=== PATIENT | female | born 1980 | race Caucasian/White ===

== ENCOUNTER → 2016-10-22 | Outpatient (CLI) | payer BC ==
[~2016-10-22] MED LIST: BARIUM SUSPENSION 2.1% (VANILLA SILQ) 450 ML PO ONE; BCP PO; CATHETER FLUSH 10 ML SYR IV PRN; CLIN300C3 PO; HYDR-3729 PO; IOHEXOL 350 MG/ML 100 ML (OMNIPAQUE 350) VIAL IV ONE; NORG1TAB33 PO; NS 100 ML (IVPB) BAG IV ONE; PRD20T PO
--- NOTE | 2016-10-22 10:03 | Diagnostic Imaging Report ---
CLINICAL INDICATION: Patient with bilateral flank pain, upset stomach, pain in lower right side. Patient had left ovarian cyst removed in 2010. EXAM: Axial CT scan of the abdomen and pelvis performed with 100 cc of Omnipaque 350 IV contrast. Portal venous and delayed phases were obtained. Coronal reformatted images were created. COMPARISON: None. FINDINGS: The visualized lung bases are clear. There is diffuse bowel wall thickening and decompression of the colon noted from the rectosigmoid region all the way to the cecum. There is residual enteric contrast within the colon. There is no significant adjacent fat stranding or intra-abdominal fluid collection seen. There is no intra-abdominal free air. The terminal ileum is predominantly decompressed and grossly unremarkable as visualized. The appendix is partially visualized and is grossly unremarkable as seen. The remainder of the intestines are unremarkable. There is no intra-abdominal or intrapelvic lymphadenopathy. The liver, spleen, gallbladder, and adrenal glands are unremarkable. Right kidney is unremarkable with no evidence of stones or hydronephrosis. There are congenital abnormal findings of the left kidney which is located in the low abdominal upper pelvis region and is slightly deformed and rotated in a clockwise manner. There is no hydronephrosis, stones or left renal mass seen. The uterus is unremarkable. The bladder is partially fluid distended and shows no gross abnormality. Extra-abdominal and extrapelvic soft tissue structures are unremarkable. IMPRESSION: 1: There is diffuse bowel wall thickening and decompressed appearance noted throughout the colon. There is no adjacent fat stranding seen. There is residual enteric contrast seen within the colon. Terminal ileum shows no significant abnormality as visualized. These findings may be related to infectious colitis versus ulcerative colitis versus Crohn's disease. 2: Congenitally abnormal appearance and rotated left kidney located in the pelvis. There is no evidence of hydronephrosis or urinary tract stones. 3: The remainder of this exam shows no significant abnormality. Dictated by: Dictated on workstation # [id number]
== END ==
LOC: RAD 08:30
PROVIDERS: ATTEND Surgery
DX: R10.11 Right upper quadrant pain (principal)
CPT/HCPCS: 74177

== ENCOUNTER → 2016-10-28 | Outpatient (CLI) | payer BC ==
[~2016-10-28] MED LIST changes: -BARIUM SUSPENSION 2.1% (VANILLA SILQ) 450 ML PO ONE; -IOHEXOL 350 MG/ML 100 ML (OMNIPAQUE 350) VIAL IV ONE; -NS 100 ML (IVPB) BAG IV ONE
--- NOTE | 2016-10-28 13:14 | Diagnostic Imaging Report ---
INDICATION: Right upper quadrant pain. COMPARISON: CT 10/22/2016. TECHNIQUE: Scintigraphic images were obtained following the intravenous administration of 5.41 mCi of technetium 99m labeled Choletec. Ejection fraction was calculated following the administration of a fatty meal. Region of interest was drawn around the gallbladder and a time/activity curve was generated. DISCUSSION: Hepatic uptake and excretion are normal. There is normal appearance of activity within the gallbladder at 15 minutes and within the small bowel at 20 minutes. No retention activity seen within the common duct. Following the administration of a fatty meal, the gallbladder ejection fraction was calculated at 61%, normal. IMPRESSION: 1. Normal HIDA scan. 2. Normal gallbladder ejection fraction. 3. Patient reported no symptoms during the exam. Dictated by: Dictated on workstation # [id number]
== END ==
LOC: CARD 09:52
PROVIDERS: ATTEND Surgery
DX: R10.11 Right upper quadrant pain (principal)
CPT/HCPCS: 78227

== ENCOUNTER 2017-01-23 09:05 | Emergency (ER) | payer BC ==
[~2017-01-23] VITALS: Ht 165.1 cm; Wt 52.2 kg
[~2017-01-23 09:05] MED LIST changes: -CATHETER FLUSH 10 ML SYR IV PRN
--- OUTSIDE RECORDS SUMMARY | 2017-01-23 09:14 | XMS REPORT | Continuity of Care Document ---
Author Author [employer] Organization [facility] Address Unknown Phone Unavailable Care Team Providers Care Vp Training Name Role Phone [employer] Unavailable Unavailable Problems Medications Allergies, Adverse Reactions, Alerts Immunizations Results Vital Signs Encounters Procedures Plan of Care Social History Assessment and Plan Family History Value Date Source Advance Directives Order Name Results Value Date Source
--- OUTSIDE RECORDS SUMMARY | 2017-01-23 09:15 | XMS REPORT | Continuity of Care Document ---
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 09/27/2015 CARLIN PRICE MD Ot J34.3 HYPERTROPHY OF NASAL TURBINATES 09/27/2015 CARLIN PRICE MD Ot Z01.810 ENCOUNTER FOR PREPROCEDURAL CARDIOVASCUL 09/27/2015 CARLIN PRICE MD Ot Z01.812 ENCOUNTER FOR PREPROCEDURAL LABORATORY E 09/27/2015 CARLIN PRICE MD Ot Z11.2 ENCOUNTER FOR SCREENING FOR OTHER BACTER 09/28/2015 CARLIN PRICE MD Ot J32.4 09/28/2015 CARLIN PRICE MD Ot J34.2 09/28/2015 CARLIN PRICE MD Ot J34.3 09/28/2015 CARLIN PRICE MD Ot Z01.810 09/28/2015 CARLIN PRICE MD Ot Z01.812 09/28/2015 CARLIN PRICE MD Ot Z11.2 10/06/2015 CARLIN PRICE MD Ot J32.0 CHRONIC MAXILLARY SINUSITIS 10/06/2015 CARLIN PRICE MD Ot J32.2 CHRONIC ETHMOIDAL SINUSITIS 10/06/2015 CARLIN PRICE MD Ot J34.3 HYPERTROPHY OF NASAL TURBINATES 06/17/2016 CARLIN PRICE MD Ot J32.9 CHRONIC SINUSITIS, UNSPECIFIED 06/17/2016 CARLIN PRICE MD Ot R51 HEADACHE 07/03/2016 CALRIN PRICE MD Ot J32.9 CHRONIC SINUSITIS, UNSPECIFIED 07/16/2016 CARLIN PRICE MD Ot J32.0 CHRONIC MAXILLARY SINUSITIS 07/16/2016 DEE RIVAS, CARLIN Underwood Ot Z01.818 ENCOUNTER FOR OTHER PREPROCEDURAL EXAMIN 07/17/2016 CARLIN PRICE MD Ot J32.0 CHRONIC MAXILLARY SINUSITIS 07/19/2016 CARLIN PRICE MD Ot J32.0 CHRONIC MAXILLARY SINUSITIS 07/23/2016 CARLIN PRICE MD Ot J32.0 CHRONIC MAXILLARY SINUSITIS 07/24/2016 CARLIN PRICE MD Ot J32.0 CHRONIC MAXILLARY SINUSITIS 07/26/2016 CARLIN PRICE MD Ot J32.0 CHRONIC MAXILLARY SINUSITIS 10/23/2016 IZAIAHBAKARI FOREMAN DOTIE Ot R10.11 RIGHT UPPER QUADRANT PAIN 10/23/2016 IZAIAHGRICELDA FOREMAN DOROUTIE Ot R10.11 RIGHT UPPER QUADRANT PAIN 10/29/2016 IZAIAH DO, GRICELDAROUTIE Ot R10.11 RIGHT UPPER QUADRANT PAIN 11/04/2016 BAKARI BLISS DOTIE Ot R10.11 RIGHT UPPER QUADRANT PAIN 11/15/2016 IZAIAH DO, GRICELDAROUTIE Ot R10.11 RIGHT UPPER QUADRANT PAIN Procedures Results Test Result Range Urine beta human chorionic gonadotropin (hCG) measurement - 07/17/16 12:15 Urine beta human chorionic gonadotropin (hCG) measurement NEGATIVE NEGATIVE Complete blood count (CBC) with automated white blood cell (WBC) differential - 07/17/16 12:40 Blood leukocytes automated count (number/volume) 6.7 10*3/ uL 4.3-11.0 Blood erythrocytes automated count (number/volume) 4.25 10*6 /uL 4.35-5.85 Venous blood hemoglobin measurement (mass/volume) 12.5 g/dL 11.5-16.0 Blood hematocrit (volume fraction) 38 % 35-52 Automated erythrocyte mean corpuscular volume 89 [foz_us] 80-99 Automated erythrocyte mean corpuscular hemoglobin (mass per erythrocyte) 29 pg 25-34 Automated erythrocyte mean corpuscular hemoglobin concentration measurement ( mass/volume) 33 g/dL 32-36 Automated erythrocyte distribution width ratio 12.5 % 10.0-14.5 Automated blood platelet count (count/volume) 362 10*3/uL 130-400 Automated blood platelet mean volume measurement 9.4 [foz_us ] 7.4-10.4 Automated blood neutrophils/100 leukocytes 50 % 42-75 Automated blood lymphocytes/100 leukocytes 38 % 12-44 Blood monocytes/100 leukocytes 11 % 0-12 Automated blood eosinophils/100 leukocytes 1 % 0-10 Automated blood basophils/100 leukocytes 0 % 0-10 Blood neutrophils automated count (number/volume) 3.3 10*3 1.8-7.8 Blood lymphocytes automated count (number/volume) 2.6 10*3 1.0-4.0 Blood monocytes automated count (number/volume) 0.7 10*3 0.0-1.0 Automated eosinophil count 0.1 10*3/uL 0.0-0.3 Automated blood basophil count (count/volume) 0.0 10*3/uL 0.0-0.1 Whole blood basic metabolic panel - 07/17/16 12:40 Serum or plasma sodium measurement (moles/volume) 137 mmol/ L 135-145 Serum or plasma potassium measurement (moles/volume) 3.7 mmol/L 3.6-5.0 Serum or plasma chloride measurement (moles/volume) 105 mmol /L 98-107 Carbon dioxide 21 mmol/L 21-32 Serum or plasma anion gap determination (moles/volume) 11 mmol/L 5-14 Serum or plasma urea nitrogen measurement (mass/volume) 8 mg /dL 7-18 Serum or plasma creatinine measurement (mass/volume) 0.70 mg /dL 0.60-1.30 Serum or plasma urea nitrogen/creatinine mass ratio 11 NRG Serum or plasma creatinine measurement with calculation of estimated glomerular filtration rate > NRG Serum or plasma glucose measurement (mass/volume) 75 mg/dL 70-105 Serum or plasma calcium measurement (mass/volume) 8.7 mg/dL 8.5-10.1 Methicillin resistant Staphylococcus aureus (MRSA) screening culture - 12:40 Methicillin resistant Staphylococcus aureus (MRSA) screening culture NEG NRG Bacteria identification in isolate by anaerobe culture - 07/17/16 14:51 Bacteria identification in isolate by anaerobe culture NOANA NRG Gram stain microscopy - 07/17/16 14:51 GRAM STAIN RESULT FEW WBC'S, NO BACTERIA OBSERVED NRG Bacteria identification in wound by culture - 07/17/16 14:51 Bacteria identification in wound by culture [id number] [facility] FREE TEXT EXTERNAL SENSITIVITY REPORTED AT 0805, 1-2-17 NRG QUANTITY OF GROWTH Scant Growth NRG MRSA AGAR Screening test for MRSA is NEGATIVE (Final to follow) NRG Bacterial susceptibility panel - 07/17/16 14:51 Oxacillin susceptibility test by minimum inhibitory concentration <= NRG Gentamicin susceptibility test by minimum inhibitory concentration <= NRG Clindamycin susceptibility test by minimum inhibitory concentration R NRG Erythromycin susceptibility test by minimum inhibitory concentration >= NRG Trimethoprim/sulfamethoxazole susceptibility test by minimum inhibitoryconcentration <= NRG Vancomycin susceptibility test by minimum inhibitory concentration <= NRG Levofloxacin susceptibility test by minimum inhibitory concentration <= NRG Rifampin susceptibility test by minimum inhibitory concentration <= NRG Tetracycline susceptibility test by minimum inhibitory concentration <= NRG Fungus culture - 07/17/16 14:51 Fungus culture NG NRG Encounters ACCT No. Visit Date/Time Discharge Status Pt. Type Provider Facility Loc./Unit Complaint [id number] 07/17/2016 12:14:00 2015 17:40:00 DIS Outpatient CARLIN PRICE MD [facility] RIGHT MAXILARY SINUSITIS [id number] 07/10/2016 05:37:00 2015 12:11:00 DIS Outpatient CARLIN PRICE MD [facility] PREOP RIGHT MAXILARY SINUSITIS [id number] 10/06/2015 08:10:00 2015 14:35:00 DIS Outpatient CARLIN PRICE MD [facility] DEVIATED SEPTUM,HYPERTROPHY NASAL TURBINATES [id number] 09/27/2015 05:50:00 2015 13:43:00 DIS Outpatient CARLIN PRICE MD [facility] PREOP DEVIATED SEPTUM [id number] 10/28/2016 09:52:00 ACT Outpatient CHELSIE BLISS DO [facility] CARD RUQ PAIN [id number] 10/22/2016 08:30:00 ACT Outpatient CHELSIE BLISS DO [facility] RAD RUQ PAIN [id number] 06/17/2016 11:41:00 ACT Outpatient CARLIN PRICE MD [facility] RAD CHRONIC SINUSITIS [id number] 08/01/2015 08:41:00 ACT Outpatient CARLIN PRICE MD [facility] RAD HEADACHES,CHRONIC PANSINUSITIS
[2017-01-23] MEDS ORDERED: NS IV 1000 ML 1,000 ML IV ONE (09:27)
[2017-01-23] MEDS ORDERED: ONDANSETRON 4 MG/2 ML (SDV) Z0FRAN IVP ONE (09:30)
[2017-01-23] MEDS ORDERED: LIDOCAINE 2% VISCOUS 15 ML UDC PO ONE (09:45)
[2017-01-23] MEDS ORDERED: ANTACID SUSP 30 ML UDC (MYLANTA) PO ONE (09:45)
[2017-01-23 09:54] LABS: BASOPHILS % (AUTO) 0 % (0-10); EOSINOPHILS % (AUTO) 0 % (0-10); LYMPHOCYTES # (AUTO) 1.5 X 10^3 (1.0-4.0); LYMPHOCYTES % (AUTO) 23 % (12-44); MEAN CORPUSCULAR HEMOGLOBIN 30 PG (25-34); MEAN CORPUSCULAR HGB CONC 34 G/DL (32-36); MEAN CORPUSCULAR VOLUME 89 FL (80-99); MONOCYTES # (AUTO) 0.5 X 10^3 (0.0-1.0); MONOCYTES % (AUTO) 7 % (0-12); NEUTROPHILS # (AUTO) 4.6 X 10^3 (1.8-7.8); NEUTROPHILS % (AUTO) 69 % (42-75); PLATELET COUNT 362 10^3/uL (130-400); RED BLOOD COUNT 4.59 10^6/uL (4.35-5.85); RED CELL DISTRIBUTION WIDTH 12.8 % (10.0-14.5); WHITE BLOOD COUNT 6.7 10^3/uL (4.3-11.0)
[2017-01-23 09:58] LABS: BILIRUBIN,URINE NEGATIVE (NEGATIVE); KETONES,URINE 2+ (NEGATIVE); LEUKOCYTE ESTERASE ,URINE 1+ (NEGATIVE); NITRITE,URINE NEGATIVE (NEGATIVE); PH,URINE 5 (5-9); PROTEIN,URINE 2+ (NEGATIVE); SQUAMOUS EPITHELIAL CELL,UR >50 /HPF; UROBILINOGEN,URINE NORMAL (NORMAL); WBC,URINE 0-2 /HPF
[2017-01-23] MEDS ORDERED: FAMOTIDINE 20MG/2ML IV (PEPCID) IVP ONE (10:00)
[2017-01-23 10:11] LABS: ALBUMIN 4.3 GM/DL (3.2-4.5); BILIRUBIN,TOTAL 0.5 MG/DL (0.1-1.0); CALCIUM 9.8 MG/DL (8.5-10.1); CREATININE SERUM 1.11 MG/DL (0.60-1.30); MAGNESIUM 2.2 MG/DL (1.8-2.4); TOTAL PROTEIN 7.8 GM/DL (6.4-8.2); hs C REACTIVE PROTEIN 0.61 MG/DL (0.00-0.50)
[2017-01-23 10:20] LABS: ERYTHROCYTE SEDIMENTATION RATE 10 MM/HR (0-20)
--- NOTE | 2017-01-23 10:31 | ED Abdominal Pain ---
General Chief Complaint: -Female Stated Complaint: FATIGUE/LACK OF APPETITE/VAG BLEEDING/NAUSEA Nursing Triage Note: ADM TO ED REPORTS 2 MONTHS AGO WAS SEEN BY DR MULLINS IN [place] TEST DONE WAS TOLD SHE HAD INFECTION IN COLON WAS PUT ON ANTIBIOTICS HAS NOT FELT WELL SINCE. 2 WEEKS AGO SAW [facility] WAS TOLD SHE HAD ANTIBIOTIC. REPORTS NOT ABALE TO EAT NAUSEA IS ON BCP STARTED WITH VAG BLEEDING YESTERDAY AND BEEN HAVING SOME WT LOSS WITH LOW BACK PAIN Sepsis Screen: No Definite Risk Source of Information: Patient Exam Limitations: No Limitations History of Present Illness Time Seen By Provider: 09:18 Initial Comments This 37 year old woman presents to the ER with complaints of ongoing back and abdominal discomfort since October. She has been treated for urinary tract infection and possible colitis. She has been worked up with hepatobiliary scan and CT of the abdomen and pelvis. She was found to have a thickened colon wall and was treated for colitis. This was followed by colonoscopy performed at [facility] in [place]. She reports the colonoscopy was unremarkable. She has had decreased appetite throughout this illness and has lost 20 pounds since onset of symptoms. She is often nauseated. Today she presents with a new discomfort in the periumbilical region and epigastric region. She reports feeling very fatigued. She is also concerned because she started having some vaginal bleeding today. She is on continuous oral control to prevent menstruation because of prior menstrual problems and ovarian cyst. She has been seen by Dr. Mullins, Maggie Melendez, and Dr. Alvarado for evaluation of these problems. Results of her imaging studies were reviewed. She had a normal hepatobiliary scan on October 28. CT performed performed October 22 demonstrated colitis versus possible inflammatory bowel disease. She had no evidence of ureteral stone. 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 Patient reports no family history of inflammatory bowel disease. Allergies and Home Medications Allergies Coded Allergies: No Known Drug Allergies (Unverified , 07/10/16) Home Medications Clindamycin HCl 300 Mg Capsule, 1 CAP PO TID for 7 Days, Ref 1 Prescribed by: LELIA MEJIA on 07/17/16 1642 Hydrocodone/Acetaminophen 1 Each Tablet, 1-2 TAB PO Q4H PRN for PAIN, #40 Ref 0 Prescribed by: LELIA MEJIA on 07/17/16 1642 Metronidazole 500 Mg Tablet, 500 MG PO BID, #14 Prescribed by: WILLY BUENO on 01/23/17 1227 Omeprazole 20 Mg Capsule.dr, 20 MG PO BID, #30 Prescribed by: WILLY BUENO on 01/23/17 1227 Ondansetron 4 Mg Tab.rapdis, 4 MG SL Q4H, #10 Prescribed by: WILLY BUENO on 01/23/17 1227 Prednisone 20 Mg Tab, 20 MG PO DAILY, #12 Ref 0 Take 3 tabs(60mg)daily, then decrease to 2 tabs(40mg)daily, then decrease to 1 tab(20mg)daily, then off. Prescribed by: LELIA MEJIA on 07/17/16 1642 [Bcp] , 1 TAB PO DAILY, (Reported) Review of Systems Constitutional: see HPI EENTM: No Symptoms Reported Respiratory: No Symptoms Reported Cardiovascular: No Symptoms Reported Gastrointestinal: See HPI Genitourinary: See HPI Musculoskeletal: no symptoms reported Skin: no symptoms reported Psychiatric/Neurological: No Symptoms Reported Endocrine: No Symptoms Reported Hematologic/Lymphatic: No Symptoms Reported Past Llffsgh-Xqpnwj-Nsxtia Hx Patient Social History Alcohol Use: Occasionally Uses Recreational Drug Use: No Smoking Status: Never a Smoker Former Smoker/When Quit: Sep 18, 2005 Recent Foreign Travel: No Contact w/Someone Who Travel: No Recent Infectious Disease Expo: No Recent Hopitalizations: No Seasonal Allergies Seasonal Allergies: Yes (SINUS PROBLEMS) Surgeries HX Surgeries: Yes (OPEN OVARIAN CYSTECTOMY, WISDOME TEETH, SINUS SURGERY) Respiratory Hx Respiratory Disorders: No Cardiovascular Hx Cardiac Disorders: No Neurological Hx Neurological Disorders: Yes (SINUS HEADACHES) Neurological Disorders: Headaches /Migraines Reproductive System : No Hx Reproductive Disorders: Yes Sexually Transmitted Disease: No HIV/AIDS: No Female Reproductive Disorders: Ovarian Cyst Genitourinary Hx Genitourinary Disorders: No Gastrointestinal Hx Gastrointestinal Disorders: Yes Gastrointestinal Disorders: Colitis (infectious) Musculoskeletal Hx Musculoskeletal Disorders: No Endocrine Hx Endocrine Disorders: No HEENT HX ENT Disorders: No Loss of Vision: Denies Hearing Impairment: Denies Cancer Hx Cancer: No Psychosocial Hx Psychiatric Problems: No Integumentary HX Skin/Integumentary Disorder: No Blood Transfusions Hx Blood Disorders: No Adverse Reaction to a Blood Tr: No (N/A) Family Medical History Significant Family History: No Pertinent Family Hx, Psychiatric Problems ( alcoholism) Physical Exam Vital Signs VS - Last 72 Hours, by Label 01/23/17 01/23/17 09:10 12:43 Temp 95.4 Pulse 92 93 Resp 18 18 B/P (MAP) 131/100 Pulse Ox 99 99 O2 Delivery Room Air Capillary Refill : Less Than 3 Seconds General Appearance: WD/WN, no apparent distress, thin HEENT: PERRL/EOMI, normal ENT inspection, pharynx normal Neck: normal inspection Respiratory: lungs clear, normal breath sounds, no respiratory distress, no accessory muscle use Cardiovascular: regular rate, rhythm, no edema, no murmur Gastrointestinal: normal bowel sounds, soft, tenderness (generalized tenderness throughout the abdomen but more intense in the epigastric region) Extremities: normal inspection, no pedal edema Pelvic: normal external exam, normal adnexa, no cerv. 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 nml as tested, no motor/sensory deficits, alert, normal mood/affect, oriented x 3 Skin: normal color, warm/dry Progress/Results/Core Measures Results/Orders Lab Results Laboratory Tests Test 01/23/17 09:37 01/23/17 09:43 01/23/17 11:32 Range/Units Urine Color YELLOW Urine Clarity SLIGHTLY CLOUDY Urine pH 5 5-9 Urine Specific [place] 1.020 1.016-1.022 Urine Protein 2+ H NEGATIVE Urine Glucose (UA) NEGATIVE NEGATIVE Urine Ketones 2+ H NEGATIVE Urine Nitrite NEGATIVE NEGATIVE Urine Bilirubin NEGATIVE NEGATIVE Urine Urobilinogen NORMAL NORMAL MG/DL Urine Leukocyte Esterase 1+ H NEGATIVE Urine RBC (Auto) 5+ H NEGATIVE Urine RBC 5-10 H /HPF Urine WBC 0-2 /HPF Urine Squamous Epithelial Cells >50 H /HPF Urine Crystals NONE /LPF Urine Bacteria LARGE H /HPF Urine Casts NONE /LPF Urine Mucus NEGATIVE /LPF Urine Culture Indicated NO White Blood Count 6.7 4.3-11.0 10^3/uL Red Blood Count 4.59 4.35-5.85 10^6/uL Hemoglobin 13.7 11.5-16.0 G/DL Hematocrit 41 35-52 % Mean Corpuscular Volume 89 80-99 FL Mean Corpuscular Hemoglobin 30 25-34 PG Mean Corpuscular Hemoglobin Concent 34 32-36 G/DL Red Cell Distribution Width 12.8 10.0-14.5 % Platelet Count 362 130-400 10^3/uL Mean Platelet Volume 10.0 7.4-10.4 FL Neutrophils (%) (Auto) 69 42-75 % Lymphocytes (%) (Auto) 23 12-44 % Monocytes (%) (Auto) 7 0-12 % Eosinophils (%) (Auto) 0 0-10 % Basophils (%) (Auto) 0 0-10 % Neutrophils # (Auto) 4.6 1.8-7.8 X 10^3 Lymphocytes # (Auto) 1.5 1.0-4.0 X 10^3 Monocytes # (Auto) 0.5 0.0-1.0 X 10^3 Eosinophils # (Auto) 0.0 0.0-0.3 10^3/uL Basophils # (Auto) 0.0 0.0-0.1 10^3/uL Erythrocyte Sedimentation Rate 10 0-20 MM/HR Sodium Level 138 135-145 MMOL/L Potassium Level 4.0 3.6-5.0 MMOL/L Chloride Level 104 98-107 MMOL/L Carbon Dioxide Level 22 21-32 MMOL/L Anion Gap 12 5-14 MMOL/L Blood Urea Nitrogen 8 7-18 MG/DL Creatinine 1.11 0.60-1.30 MG/DL Estimat Glomerular Filtration Rate 55 BUN/Creatinine Ratio 7 Glucose Level 87 70-105 MG/DL Calcium Level 9.8 8.5-10.1 MG/DL Magnesium Level 2.2 1.8-2.4 MG/DL Total Bilirubin 0.5 0.1-1.0 MG/DL Aspartate Amino Transf (AST/SGOT) 20 5-34 U/L Alanine Aminotransferase (ALT/SGPT) 18 0-55 U/L Alkaline Phosphatase 61 40-136 U/L C-Reactive Protein High Sensitivity 0.61 H 0.00-0.50 MG/DL Total Protein 7.8 6.4-8.2 GM/DL Albumin 4.3 3.2-4.5 GM/DL Lipase 16 8-78 U/L TSH [place] Testing 1.60 0.35-4.94 UIU/ML Serum Test, Qualitative NEGATIVE NEGATIVE Chlamydia DNA Probe Not Detected Not Detected Helicobacter pylori IgG Antibody 0.27 0.00-0.79 U/mL Helicobacter pylori Interpretation Negative Negative Micro Results Microbiology 01/23/17 Genital Culture - Final, Complete Usual/normal dilip isolated. 01/23/17 OCTAVIA Preparation - Final, Complete 01/23/17 Wet Prep - Final, Complete My Orders Orders - WILLY DINERO MD Cbc With Automated Diff (01/23/17 09:27) Comprehensive Metabolic Panel (01/23/17 09:27) Hcg,Qualitative Serum (01/23/17 09:27) Lipase (01/23/17 09:27) Magnesium (01/23/17 09:27) Thyroid Analyzer (01/23/17 09:27) Ua Culture If Indicated (01/23/17 09:27) Saline Lock/Iv-Start (01/23/17 09:27) Ondansetron Injection (Zofran Injectio (01/23/17 09:30) Ns Iv 1000 Ml (Sodium Chloride 0.9%) (01/23/17 09:27) Hs C Reactive Protein (01/23/17 09:41) Erythrocyte Sedimentation Rate (01/23/17 09:41) Lidocaine 2% Viscous 15 Ml (Xylocaine Vi (01/23/17 09:45) Antacid Suspension (Mylanta Suspension (01/23/17 09:45) Famotidine Injection (Pepcid Injection) (01/23/17 10:00) Wet Prep (01/23/17 10:45) Neisseria Gonorrhea Dna (01/23/17 10:45) Chlamydia Dna (01/23/17 10:45) Genital Culture (01/23/17 10:45) Octavia Prep (01/23/17 10:45) Helicobacter Pylori Toya Igg (01/23/17 11:33) Iv Push Electromyographic Technician Ed (01/23/17 ) Medications Given in ED Vital Signs/I&O Vital Sign - Last 12Hours 01/23/17 01/23/17 09:10 12:43 Temp 95.4 Pulse 92 93 Resp 18 18 B/P (MAP) 131/100 Pulse Ox 99 99 O2 Delivery Room Air Blood Pressure Mean: 110 Progress Note : Progress Note Prior imaging reports were reviewed. Lab workup was unremarkable. Urine was contaminated but showed no white blood cells. Pelvic exam was performed. Vaginal bleeding was confirmed. There was no cervical motion tenderness. Vaginal cultures were obtained. Presence of clue cells suggested bacterial vaginosis. Patient was advised to follow-up with her hide paster regarding the vaginal bleeding. A trial of GI cocktail and Pepcid was administered. Patient did have gradual relief of symptoms after this. Advised follow-up for endoscopy. H. pylori testing was performed prior to discharge. Patient is to follow-up with her doctor regarding final culture results and results of the H. pylori screen. Departure Impression Impression: Primary Impression: Upper abdominal pain Additional Impressions: Nausea Weight loss Vaginal bleeding Disposition: HOME, SELF-CARE Condition: Improved Departure-Patient Inst. Decision time for Depature: 12:10 Referrals: MAGGIE MELENDEZ DNP (PCP/Family) Primary Care Physician Patient Instructions: Acute Abdomen (Belly Pain) Add. Discharge Instructions: Use omeprazole as prescribed twice daily for at least 2 weeks. Continue with omeprazole even if symptoms are improving. You may additionally take Tums for faster relief of upper abdominal pain. Follow-up with your primary care provider to review results of vaginal cultures and H. pylori screening. Results should be available next week. Discuss the potential for upper endoscopy. You may start Flagyl (metronidazole) for suspected bacterial vaginosis for you may wait and discuss with your primary care provider after reviewing vaginal cultures. Return to the emergency room if symptoms worsen. Avoid the following: Eating large meals, eating close to bedtime, carbonation, caffeine, chocolate, citrus fruits and juices, tomato products, mints, NSAID medication such as ibuprofen or naproxen, alcohol, tobacco, spicy foods, or anything else you know irritates your stomach. Complete your antibiotics for urinary tract infection as prescribed. All discharge instructions reviewed with patient and/or family. Voiced understanding. Scripts Metronidazole (Flagyl) 500 Mg Tablet 500 MG PO BID, #14 TAB Prov: WILLY DINERO MD 01/23/17 Ondansetron (Zofran Odt) 4 Mg Tab.rapdis 4 MG SL Q4H, #10 TAB Prov: WILLY DINERO MD 01/23/17 Omeprazole (Omeprazole) 20 Mg Capsule.dr 20 MG PO BID, #30 CAP Prov: WILLY DINERO MD 01/23/17 WILLY DINERO MD Jan 23, 2017 10:31
[2017-01-23] MEDS ORDERED: ONDA4TAB8 SL (12:27)
[2017-01-23] MEDS ORDERED: OMEP20CA12 PO (12:27)
[2017-01-23] MEDS ORDERED: METR500T PO (12:27)
[2017-01-23 12:43] VITALS: BP 111/91
[2017-01-24 08:05] LABS: H PYLOR IGG INT Negative (Negative)
[2017-01-24 16:40] LABS: CHLAMYDIA DNA PROBE PT Not Detected (Not Detected)
== END 2017-01-23 12:33 | disposition home or self-care (01) ==
LOC: EDUNIT# 09:05 → ER 09:07
DX: N93.9 Abnormal uterine and vaginal bleeding, unspecified (principal); R10.33 Periumbilical pain; R10.10 Upper abdominal pain, unspecified; R10.13 Epigastric pain; R11.0 Nausea; R63.4 Abnormal weight loss; G43.909 Migraine, unspecified, not intractable, without status migrainosus; Z87.891 Personal history of nicotine dependence; Z87.42 Personal history of other diseases of the female genital tract; Z68.1 Body mass index [BMI] 19.9 or less, adult
CPT/HCPCS: 36415; 80053; 81000; 83690; 83735; 84443; 84703; 85025; 85652; 86141; 86677; 87070; 87210; 87491; 87591; 96361; 96374; 96375

== ENCOUNTER → 2017-01-27 | Outpatient (CLI) | payer BC ==
[~2017-01-27] MED LIST changes: +HYDR-3816 PO; +L.AC1CAP6 PO; +METR500T PO; +OMEP20CA12 PO; +ONDA4TAB8 SL; +PANT40TA2 PO; +[UNRECOGNIZED DRUG - OTHER]; +probiotic
--- NOTE | 2017-01-27 11:58 | Diagnostic Imaging Report ---
PROCEDURE: US abdomen complete. TECHNIQUE: Multiple real-time grayscale images were obtained over the abdomen in various projections. INDICATION: Abdominal pain. Weight loss. FINDINGS: The area of the pancreas is obscured by bowel gas. The liver is fairly homogeneous with no focal lesion seen. The gallbladder demonstrates no stones or wall thickening. There is however a focal hyperechoic lesion along the wall of the gallbladder suggestive of a polyp, measuring 4 mm. Sonographic Garg sign is reportedly negative. The CBD is 3 mm in caliber. The right kidney is 11.4 and the left kidney is 11.3 cm in length. The left kidney is displaced inferiorly, ptosis. In the upper aspect of the left kidney, there is suggestion of cystic area measuring 3.2 x 2.9 cm. Based on recent CT scan no cystic lesion or solid mass is identified on the scan performed on 10/22/2016. The left kidney demonstrates abnormal rotation and perhaps this suggests a cystic lesion, is related to the rotated renal pelvis. No solid mass is suggested on this exam. The spleen is 7.6 cm in length, normal. The visualized portions of the abdominal aorta and IVC appear unremarkable. No fluid collection or ascites seen. IMPRESSION: 1. There is a 4 mm hyperechoic lesion in the gallbladder likely related to a polyp. 2. 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 A cystic area is demonstrated and with correlation with CT, might represent the rotated renal pelvis rather than a true parenchymal lesion. Dictated by: Dictated on workstation # [id number]
--- NOTE | 2017-01-27 12:11 | Diagnostic Imaging Report ---
EXAMINATION: Transabdominal and transvaginal pelvic ultrasound. INDICATION: Vaginal bleeding. Right lower quadrant pain. History of left oophorectomy. FINDINGS: The uterus is 7.3 x 4.7 x 4.3 cm. The endometrial stripe is 0.3 cm in thickness. There is no focal myometrial lesion identified. The right ovary is 1.8 x 3.7 x 1.2 cm. Venous and arterial waveforms are demonstrated over the right ovary. No fluid collection is seen. The left ovary has been removed. IMPRESSION: Unremarkable exam. Dictated by: Dictated on workstation # [id number]
--- NOTE | 2017-01-27 19:01 | Diagnostic Imaging Report ---
Bilateral screening mammogram. The current study was also evaluated with a Computer Aided Detection (CAD) system. INDICATION: Screening. No current complaints stated on the questionnaire. COMPARISON: None. This is the baseline exam because prior studies that are reportedly were performed 19 years ago were not accessible. FINDINGS: The breasts are composed of scattered fibroglandular densities. No mass, architectural distortion, or suspicious cluster of calcifications. IMPRESSION: No mammographic evidence of malignancy. ACR BI-RADS Category 2: Benign findings. Result letter will be mailed to the patient. Note: At least 10% of breast cancer is not imaged by mammography. Dictated by: Dictated on workstation # [id number]
[2017-01-28 08:20] LABS: CALCIUM PARA THYROID HORMONE 10.1 mg/dL (8.5-10.5); FOLLICLE STIMULATING HORMONE 3.4 mIU/mL; LUTEINIZING HORMONE 1.1 mIU/mL; PROGESTERONE 0.33 ng/mL
== END ==
LOC: RAD 10:11
PROVIDERS: ATTEND Nurse Practitioner Family
DX: R63.4 Abnormal weight loss; K58.9 Irritable bowel syndrome, unspecified; R10.84 Generalized abdominal pain; N28.9 Disorder of kidney and ureter, unspecified; Z12.31 Encounter for screening mammogram for malignant neoplasm of breast; K82.9 Disease of gallbladder, unspecified
CPT/HCPCS: 36415; 76700; 76830; 76856; 77067; 82274; 83001; 83002; 83970; 84144; 84681; 87045; 87046; 87324; 87328; 87329; 87449; 87493

== ENCOUNTER → 2017-02-09 | Outpatient (CLI) | payer BC ==
[~2017-02-09] MED LIST changes: -HYDR-3816 PO; -L.AC1CAP6 PO; -PANT40TA2 PO; -[UNRECOGNIZED DRUG - OTHER]; -probiotic
== END ==
LOC: LAB 15:15
PROVIDERS: ATTEND Internal Medicine
DX: A04.7 Enterocolitis due to Clostridium difficile (principal)
CPT/HCPCS: 82274; 87045; 87046; 87324; 87328; 87329; 87449

== ENCOUNTER 2017-02-10 05:37 | Outpatient (CLI) | payer BC ==
[~2017-02-10] VITALS: Ht 165.1 cm; Wt 52.2 kg
== END 2017-02-10 15:49 ==
LOC: PREOP 05:37
PROVIDERS: ATTEND Surgery
DX: Z01.818 Encounter for other preprocedural examination (principal); K82.4 Cholesterolosis of gallbladder

== ENCOUNTER 2017-02-13 06:09 | Day surgery (SDC) | payer BC ==
[~2017-02-13] VITALS: Ht 165.1 cm; Wt 52.2 kg
[2017-02-13] MEDS: LACTATED RINGERS 1,000 ML IV PRN ×3 (06:30→09:45)
[2017-02-13] MEDS ORDERED: MIDAZOLAM 2 MG/2 ML (VERSED) VIAL ONE (06:40)
[2017-02-13] MEDS ORDERED: DEXAMETHASONE PF 10 MG/ML (DECADRON) VIAL ONE (06:40)
[2017-02-13] MEDS ORDERED: LIDOCAINE PF 2% 5 ML (XYLOCAINE) VIAL ONE (06:40)
[2017-02-13] MEDS ORDERED: proPOfol 200 MG/20 ML (DIPRIVAN) VIAL IV ONE (06:40)
[2017-02-13] MEDS ORDERED: SEVOFLURANE (ULTANE) 15 ML INHAL SOLN ONE ×7 (06:40→09:42)
[2017-02-13] MEDS ORDERED: fentaNYL INJECTION 100 MCG/2 ML AMP ONE ×2 (06:40→09:36)
[2017-02-13] MEDS ORDERED: ONDANSETRON 4 MG/2 ML (SDV) Z0FRAN ONE ×3 (06:40→10:39)
[2017-02-13] MEDS ORDERED: ROCURONIUM 50 MG/5 ML (ZEMURON) VIAL IV ONE ×2 (06:44→09:42)
[2017-02-13 06:47] VITALS: BP 107/85
[2017-02-13] MEDS ORDERED: [UNRECOGNIZED DRUG - OTHER] (07:00)
[2017-02-13] MEDS ORDERED: ceFAZolin 1 GM/NS 50 ML IVPB IV ONE ×2 (07:00)
[2017-02-13] MEDS ORDERED: probiotic (07:00)
[2017-02-13] MEDS ORDERED: BUP/EPI 0.5% 1:200,000 (MARCAINE) 10ML VIAL IJ ONE ×2 (07:28→08:05)
--- NOTE | 2017-02-13 07:51 | Progress Note-Pre Operative ---
Pre-Operative Progress Note H&P Reviewed The H&P was reviewed, patient examined and no changes noted. Date Seen by Provider: Feb 13, 2017 Time Seen by Provider: 07:45 Date H&P Reviewed: Feb 13, 2017 Time H&P Reviewed: 07:50 Pre-Operative Diagnosis: Symptomatic Gallbladder polyp GUSTABO SURESH APRN Feb 13, 2017 07:51
[2017-02-13] MEDS ORDERED: ONDANSETRON 4 MG/2 ML (SDV) Z0FRAN IVP PRN (08:00)
[2017-02-13] MEDS ORDERED: ACETAMINOPHEN 325 MG TABLET/CAPLET (TYLENOL) PO PRN (08:00)
[2017-02-13] MEDS ORDERED: morphine INJ 10 MG/ML 1ML (SYR OR VIAL) IVP PRN (08:00)
[2017-02-13] MEDS ORDERED: HYDROcodone/APAP 5 MG/325 MG (LORTAB) TAB PO ONE (08:00)
[2017-02-13] MEDS ORDERED: NEOSTIGMINE (BLOXIVERZ ) 1 MG/1ML 10 ML VIAL ONE (09:42)
[2017-02-13] MEDS ORDERED: GLYCOPYRROLATE 0.2 MG/ML (ROBINUL) 2 ML VIAL ONE (09:42)
[2017-02-13] MEDS ORDERED: LACTATED RINGERS 1,000 ML IV ONE ×2 (09:42)
--- NOTE | 2017-02-13 09:49 | Progress Note-Post Operative ---
Post-Operative Progess Note Surgeon (s)/Mri Special Procedures Technologist (s) Surgeon JORDAN CHUNG MD Mri Special Procedures Technologist: josh downs RADIOPHARMACIST Pre-Operative Diagnosis Symptomatic Gallbladder polyp Post-Operative Diagnosis same Procedure & Operative Findings Date of Procedure 02/13/17 Procedure Performed/Findings laparoscopic cholecystectomy Anesthesia Type GET Estimated Blood Loss Estimated blood loss (mL): minimal Specimens/Packing Specimens Removed gallbladder JRODAN CHUNG MD Feb 13, 2017 9:49 am
[2017-02-13] MEDS ORDERED: HYDR-3816 PO (09:51)
--- NOTE | 2017-02-13 09:52 | Discharge Inst-Surgical ---
D/C Lap Instructions-JULIET New, Converted, or Re-Newed RX: RX on Chart Follow Up Appt in 2 weeks Activity as tolerated No driving for 24 hours No driving while on pain medications Incentive Spirometry use every 2 hours while awake Regular Diet Symptoms to Report: Fever over 101 degree F, Nausea/Vomiting Infection Signs and Symptoms to report: Increased redness, Foul odor of wound, Increased drainage Bathing instructions: May shower Operative Area Clean/Dry; Keep incision clean/dry If any problems/questions: Contact your physician or go to Emergency Room JORDAN CHUNG MD Feb 13, 2017 9:52 am
[2017-02-13] MEDS ORDERED: morphine INJ 10 MG/ML 1ML (SYR OR VIAL) ONE (09:57)
[2017-02-13] MEDS: ONDANSETRON 4 MG/2 ML (SDV) Z0FRAN IVP PRN ×2 (10:05→10:45)
[2017-02-13] MEDS: morphine INJ 10 MG/ML 1ML (SYR OR VIAL) IVP PRN ×2 (10:11→10:16)
[2017-02-13] MEDS ORDERED: KETOROLAC 30 MG/ML VIAL IVP ONE (10:15)
[2017-02-13] MEDS ORDERED: HYDROmorphone (DILAUDID) 2 MG/ML VIAL IVP PRN (10:15)
--- NOTE | 2017-02-13 10:48 | OPERATIVE REPORT ---
PROCEDURE PHYSICIAN: JORDAN ENRIQUEZ DATE OF PROCEDURE: 02/13/2017 ATTENDING PRIMARY CARE PHYSICIAN: Dr. Jeff Mc. PREOPERATIVE DIAGNOSIS: Symptomatic chronic acalculous cholecystitis. POSTOPERATIVE DIAGNOSIS: Symptomatic chronic acalculous cholecystitis. PROCEDURE: Laparoscopic cholecystectomy. SURGEON: Dr. Enriquez. PACKAGING DESIGN ENGINEER: Chaim Mcgowan APRN. ANESTHESIA: General endotracheal. ESTIMATED BLOOD LOSS: Minimal. FINDINGS: Mild chronic gallbladder wall inflammation with colonic omental adhesions towards the liver, cholesterolosis, no specific polyps or stones identified. DISPOSITION: The patient tolerated the procedure well. Ms. Criss De La Torre is a 37-year-old female with intermittent episodes of right upper abdominal quadrant pain for the past 3 months. She states that approximately June 2016, she has had multiple issues with sinus requiring surgery and was placed on antibiotics. She states that in the spring she developed diffuse abdominal pain which localized more towards the upper abdominal quadrant. She had a CT scan performed, which showed diffuse bowel wall thickening throughout the colon. She was eventually diagnosed with Clostridium difficile colitis and was treated appropriately. Throughout this process even with resolution of the stool consistency and symptoms of colitis she continued to have pain in the right upper abdominal quadrant. An ultrasound was performed, which did show gallbladder polyp. She then underwent a HIDA scan with a normal ejection fraction of 61%. She states that she does have some mild nausea, however, no vomiting. The ultrasound did show gallbladder polyp. The patient was brought to the operating room, laid supine on the table. After adequate IV pain and sedative medications and general endotracheal intubation the abdomen was prepped and draped in the standard surgical fashion. 0.5% Marcaine with epinephrine was used to anesthetize the overlying skin in the left upper abdominal quadrant and a small transverse skin incision made using a 15 blade. An 0 silk suture was applied to the medial aspect of the incision for retraction and a Veress needle inserted with a low opening pressure 0 mmHg and the abdomen was then insufflated to 15 mmHg pressure. A four-quadrant abdominal exploration was performed. There was normal appearing stomach, liver, as well as colon with no inflammatory changes. There was mild gallbladder wall inflammation, however, there is also some colonic mesenteric adhesions towards the liver and gallbladder as well. No other abnormalities were detected. Under direct visualization we then proceeded placing a supraumbilical 10 mm port after the skin and peritoneum were anesthetized using 0.5% Marcaine with epinephrine. In a similar manner, a right upper abdominal quadrant, 5 mm port was placed. The patient was then placed in reverse Trendelenburg position as well as planed right side up, left side down. The colonic mesenteric adhesions were then taken down using electrocautery. The fundus of the gallbladder was then retracted anteriorly and superiorly. The hepatoduodenal ligament was opened using blunt dissection with the hook instrument as well as electrocautery. The entire critical view of safety was identified including the triangle of Colot, as well as the cystic duct and artery going into the gallbladder, as well as the liver behind the proximal gallbladder. A timeout was then taken and the cystic duct and artery were clipped proximally and distally and cut with Endo Evans. The gallbladder was then dissected off the liver bed using electrocautery on the hook instrument with visualization of good hemostasis, as well as no leaking ducts of Luschka. The gallbladder was removed through the 10 mm port site using an Endo Catch bag. The 10 mm port site fascia and peritoneum were then closed under direct visualization using a Jeet-Elizabeth device and an 0 Vicryl suture. The abdomen was desufflated and the remaining ports removed. All skin incisions were closed using 4-0 Monocryl running subcuticular sutures. The wounds were then cleaned and covered with Dermabond. The patient tolerated the procedure well. We will start IV and oral pain medication as well as a clear liquid diet. Once she is tolerating clears, has good pain control with oral pain medications, ambulating well, we will discharge her home. She will be instructed to do no heavy lifting or exertion for the next 2 weeks. Job ID: [id number] Dictated Date: 02/13/2017 10:02:03 Diabetes Trainer Date: 02/13/2017 10:34:14 / ryanne
[2017-02-13 10:55] VITALS: BP 100/60
[2017-02-13 11:30] VITALS: BP 100/60
[2017-02-13 12:00] VITALS: BP 100/60
[2017-02-13 13:00] VITALS: BP 100/61
== END 2017-02-13 13:00 | disposition home or self-care (01) ==
LOC: SDC 06:09 → EDSTATUS 08:00 → SDC 13:00
PROVIDERS: ATTEND Surgery
DX: K81.1 Chronic cholecystitis (principal)
CPT/HCPCS: 84703; 87081; 94664

== ENCOUNTER → 2017-02-28 | Outpatient (CLI) | payer BC ==
[~2017-02-28] MED LIST changes: +CATHETER FLUSH 10 ML SYR IV PRN; +HYDR-3816 PO; +IOHEXOL 350 MG/ML 100 ML (OMNIPAQUE 350) VIAL IV ONE; +[UNRECOGNIZED DRUG - OTHER]; +probiotic
[2017-02-28 12:01] LABS: BLOOD UREA NITROGEN 6 MG/DL (7-18); BUN/CREATININE RATIO 8; CREATININE SERUM 0.73 MG/DL (0.60-1.30); GFR ESTIMATED > 60
--- NOTE | 2017-02-28 12:51 | Diagnostic Imaging Report ---
PROCEDURE: CT abdomen and pelvis with contrast. TECHNIQUE: Multiple contiguous axial images were obtained through the abdomen and pelvis after administration of intravenous contrast. INDICATION: Lower abdominal pain. COMPARISON: 10/22/2016. FINDINGS: Lower chest: The lung bases are clear. No pericardial or pleural effusion. Peritoneum: No free intraperitoneal air or fluid. Liver and biliary system: The liver is normal. Status post cholecystectomy. Trace fluid within the gallbladder fossa is not loculated in appearance. Spleen and Pancreas: Spleen is normal. The pancreas enhances normally without mass lesion or peripancreatic inflammatory changes. Adrenals: Normal. tract: Kidneys enhance normally. Stable abnormally low position of the left kidney which is abnormally rotated with the pelvis located anteriorly. No obstructive uropathy. Uterus and ovaries are normal in appearance for patient's age. GI tract: Stomach is decompressed. No bowel obstruction. No pericolonic inflammatory changes. Similar low-attenuation circumferential mild wall thickening of the transverse colon can be seen as a sequelae of subacute to chronic colitis. No evidence of active colitis. Vasculature and Lymph nodes: Normal caliber aorta. No abdominal or pelvic lymphadenopathy. Musculoskeletal: No concerning osseous lesion. IMPRESSION: 1. No acute intra-abdominal process. 2. Status post cholecystectomy with trace non-loculated fluid within the gallbladder fossa, which is likely postoperative fluid/seroma. 3. Unchanged chronic mild submucosal thickening of the colon which is likely due to prior/remote inflammation or infection. No evidence of active colitis. Dictated by: Dictated on workstation # [id number]
== END ==
LOC: RAD 11:16
PROVIDERS: ATTEND Nurse Practitioner Family
DX: K63.89 Other specified diseases of intestine (principal); Z90.49 Acquired absence of other specified parts of digestive tract
CPT/HCPCS: 36415; 74177; 82565; 84520

== ENCOUNTER 2017-04-15 11:06 | Outpatient (CLI) | payer BC ==
[~2017-04-15] VITALS: Ht 165.1 cm; Wt 52.6 kg
[~2017-04-15 11:06] MED LIST changes: -CATHETER FLUSH 10 ML SYR IV PRN; -IOHEXOL 350 MG/ML 100 ML (OMNIPAQUE 350) VIAL IV ONE
[2017-04-15] MEDS ORDERED: L.AC1CAP6 PO (13:03)
[2017-04-16] MEDS ORDERED: PANT40TA2 PO (11:55)
== END 2017-04-15 13:03 ==
LOC: PREOP 11:06
PROVIDERS: ATTEND Surgery
DX: Z01.818 Encounter for other preprocedural examination (principal); R10.13 Epigastric pain; R10.84 Generalized abdominal pain

== ENCOUNTER 2017-04-16 09:55 | Day surgery (SDC) | payer BC ==
[~2017-04-16] VITALS: Ht 165.1 cm; Wt 52.6 kg
[~2017-04-16 09:55] MED LIST changes: +L.AC1CAP6 PO
--- OUTSIDE RECORDS SUMMARY | 2017-04-16 09:59 | XMS REPORT | Continuity of Care Document ---
Author Author [employer] Organization [facility] Address Unknown Phone Unavailable Care Team Providers Care Dental Laboratory Manager Name Role Phone [employer] Unavailable Unavailable Problems Medications Allergies, Adverse Reactions, Alerts Immunizations Results Vital Signs Encounters Procedures Plan of Care Social History Assessment and Plan Family History Value Date Source Advance Directives Order Name Results Value Date Source
[2017-04-16 10:10] VITALS: BP 115/71
[2017-04-16] MEDS ORDERED: NS IV 500 ML 500 ML ONE (10:11)
[2017-04-16] MEDS ORDERED: HURRICAINE EXT TUBE (BENZOCAINE) XX PRN (10:15)
[2017-04-16] MEDS ORDERED: NS IV 500 ML 500 ML IV PRN (10:15)
[2017-04-16] MEDS ORDERED: LIDOCAINE JELLY 2% (XYLOCAINE) 5 ML TUBE MM PRN (10:15)
--- NOTE | 2017-04-16 10:51 | Conscious Sedation/ASA ---
Conscious Sedation Pre-Proced Time Reviewed: 10:45 ASA Class: 1 Airway Mallampati Classification: (apache appropriate class) I. II. III, IV Lungs Heart ASA score ASA 1: a normal healthy patient ASA 2: a patient with a mild systemic disease (mid diabetes, controlled hypertension, obesity ASA 3: a patient with a severe systemic disease that limits activity (angina , COPD, prior Myocardial infarction) ASA 4: a patient with an incapacitating disease that is a constant threat to life (CHF, renal failure) ASA 5: a moribund patient not expected to survive 24 hrs. (ruptured aneurysm) ASA 6: a declared brain patient whose organs are being harvested. For emergent operations, add the letter E after the classification Grade 2 Sedation Plan: Analgesia, Amnesia, Plan communicated to team members, Discussed options with patient/fam, Discussed risks with patient/fam Note The patient is an appropriate candidate to undergo the planned procedure, sedation, and anesthesia. The patient immediately re-assessed prior to indication. JORDAN CHUNG MD Apr 16, 2017 10:51 am
--- NOTE | 2017-04-16 10:51 | Progress Note-Pre Operative ---
Pre-Operative Progress Note H&P Reviewed The H&P was reviewed, patient examined and no changes noted. Date Seen by Provider: Apr 16, 2017 Time Seen by Provider: 10:45 Date H&P Reviewed: Apr 16, 2017 Time H&P Reviewed: 10:45 Pre-Operative Diagnosis: perisistent abdominal pain JORDAN CHUNG MD Apr 16, 2017 10:51 am
[2017-04-16] MEDS ORDERED: HYDROcodone/APAP 5 MG/325 MG (LORTAB) TAB PO PRN (11:00)
[2017-04-16] MEDS ORDERED: ACETAMINOPHEN 325 MG TABLET/CAPLET (TYLENOL) PO PRN (11:00)
[2017-04-16] MEDS ORDERED: morphine INJ 10 MG/ML 1ML (SYR OR VIAL) IV PRN (11:00)
[2017-04-16] MEDS ORDERED: ONDANSETRON 4 MG/2 ML (SDV) Z0FRAN IV PRN (11:00)
[2017-04-16] MEDS ORDERED: MIDAZOLAM 2 MG/2 ML (VERSED) VIAL ONE ×4 (11:33→12:01)
[2017-04-16] MEDS ORDERED: fentaNYL INJECTION 100 MCG/2 ML AMP ONE (11:33)
[2017-04-16] MEDS ORDERED: LIDOCAINE JELLY 2% (XYLOCAINE) 5 ML TUBE ONE (11:33)
[2017-04-16] MEDS ORDERED: HURRICAINE EXT TUBE (BENZOCAINE) ONE (11:34)
[2017-04-16] MEDS ORDERED: PANT40TA2 PO (11:55)
--- NOTE | 2017-04-16 11:56 | Discharge Inst-Surgical ---
D/C Lap Instructions-KIDO New, Converted, or Re-Newed RX: RX on Chart Follow Up PRN Activity as tolerated High Fiber Diet 25g or more per day Avoid Alcohol, Caffeine, Spicy [place] and Acid foods. Drink 64 fluid oz or more of fluids per day. Symptoms to Report: Fever over 101 degree F, Nausea/Vomiting If any problems/questions: Contact your physician or go to Emergency Room JORDAN CHUNG MD Apr 16, 2017 11:56 am
[2017-04-16] MEDS: fentaNYL INJECTION 100 MCG/2 ML AMP IVP PRN ×2 (11:58→12:01)
[2017-04-16] MEDS: MIDAZOLAM 2 MG/2 ML (VERSED) VIAL IVP PRN ×4 (12:00→12:08)
--- NOTE | 2017-04-16 12:01 | Progress Note-Post Operative ---
Post-Operative Progess Note Surgeon (s)/Fuller Brush Worker (s) Surgeon JORDAN CHUNG MD Fuller Brush Worker: none Pre-Operative Diagnosis perisistent abdominal pain Post-Operative Diagnosis reflux esophagitis(class B), small HH(<1cm), mild gastritis. Procedure & Operative Findings Date of Procedure 04/16/17 Procedure Performed/Findings EGD with bx Anesthesia Type CS Estimated Blood Loss Estimated blood loss (mL): minimal Specimens/Packing Specimens Removed GE jxn, antrum JORDAN CHUNG MD Apr 16, 2017 12:01 pm
[2017-04-16 12:55] VITALS: BP 105/66
[2017-04-16 13:26] VITALS: BP 107/67
[2017-04-16 13:35] VITALS: BP 107/67
--- NOTE | 2017-04-17 04:58 | OPERATIVE REPORT ---
DATE OF SERVICE: 04/16/2017 ATTENDING PRIMARY CARE PHYSICIAN: Dr. Mc. PREOPERATIVE DIAGNOSIS: Persistent abdominal pain. POSTOPERATIVE DIAGNOSIS: Reflux esophagitis class B, small hiatal hernia less than 1 cm in size, ozrc-et-rrcyychz gastritis. PROCEDURE: EGD with biopsy. SURGEON: Dr. Chung. ANESTHESIA: Conscious sedation. ESTIMATED BLOOD LOSS: Minimal. FINDINGS: Reflux esophagitis class B, small hiatal hernia less than 1 cm in size, enkf-jx-pkvmxnjg gastritis. Pylorus and duodenum appeared normal with no distal obstructions. DISPOSITION: The patient tolerated the procedure well. INDICATIONS: The patient is a 37-year-old female with persistent pain in the abdomen. She initially thought that her symptoms were after eating a meal. She underwent ultrasound, which did not show any stones. She then underwent a HIDA scan, which did show normal ejection fraction; however, she states that she has reproduction of symptoms during administration of test consistent with a biliary dyskinesia. She underwent a laparoscopic cholecystectomy. She reports that her pain did improve; however, over time has recurred. She does report that she has been under more amount of stress lately and the stressful episodes make her symptoms worse. She reports that she does have pain in the epigastric region as well. DESCRIPTION OF PROCEDURE: The patient was brought to the endoscopy suite, laid in the left lateral decubitus position. After adequate IV pain and sedative medications and conscious sedation anesthesia, the mouthpiece was applied. The endoscope was placed in the mouth, visualizing the pharynx and hypopharyngeal region. Vocal cords, epiglottis and vallecula identified and appeared to be normal. The endoscope was then advanced through the first, second and third portions of the esophagus. At the level of the GE junction, a reflux esophagitis class B identified. There were no ulcers or strictures identified in this region. A biopsy was taken of the GE junction with visualization of good hemostasis. The endoscope was then advanced into the stomach and then endoscope retroflexed, visualizing a small hiatal hernia approximately 1 cm in size. A hrez-iy-uoejpeiz gastritis was noted. There were no formal ulcers, polyps or any neoplasms identified. The endoscope was then advanced to the pylorus, first and second portions of the duodenum, which appeared normal. There were no duodenal ulcers, as well as no distal obstructions. The endoscope was then slowly withdrawn taking a second look and suctioning residual air with no additional findings. The patient tolerated the procedure well. We will have her undergo the necessary lifestyle and diet accommodation including small and more frequent meals, avoidance of eating at night as well as head elevation while laying supine. She also needs to avoid caffeinated narcotic beverages as well as spicy, greasy and acidic foods. We will also start her on Protonix 40 mg daily. Job ID: [id number] DocumentID: [id number] Dictated Date: 04/16/2017 13:32:04 Edge Inker Uppers Date: 04/17/2017 04:58:15 Dictated By: JORDAN CHUNG MD
== END 2017-04-16 13:35 | disposition home or self-care (01) ==
LOC: ENDO 09:55
PROVIDERS: ATTEND Surgery
DX: K21.0 Gastro-esophageal reflux disease with esophagitis (principal); K44.9 Diaphragmatic hernia without obstruction or gangrene; K29.70 Gastritis, unspecified, without bleeding
CPT/HCPCS: 84703

== ENCOUNTER → 2017-09-01 | Outpatient (CLI) | payer BC ==
[~2017-09-01] MED LIST changes: +HYDR-34 PO; -HYDR-3816 PO; +PANT40TA2 PO
--- NOTE | 2017-09-01 11:51 | Diagnostic Imaging Report ---
CLINICAL INDICATION: Patient with thyromegaly. COMPARISONS: None. FINDINGS: THYROID NODULES: None. THYROID GLAND: The thyroid gland has normal size, shape and echogenicity. The right lobe measures 4.1 cm x 1.0 cm x 1.3 cm and the left lobe measures 4.7 cm x 1.1 cm x 1.1 cm in their three dimensions. ISTHMUS: The isthmus is unremarkable and measures 1 mm in thickness. Impression: Unremarkable thyroid ultrasound. There are no thyroid nodules. Dictated by: Dictated on workstation # [id number]
== END ==
LOC: RAD 11:08
PROVIDERS: ATTEND Nurse Practitioner Family
DX: E01.0 Iodine-deficiency related diffuse (endemic) goiter (principal)
CPT/HCPCS: 76536

== ENCOUNTER → 2017-12-04 | Outpatient (CLI) | payer BC ==
--- NOTE | 2017-12-04 16:49 | Diagnostic Imaging Report ---
INDICATION: Back pain FINDINGS: Frontal views of the thoracic and lumbar spine were obtained. There is mild right convexity thoracic and lumbar scoliotic curvature. Curvature of the thoracic spine is approximately 18 degrees when measured from the superior endplate of T5 to the inferior endplate of T10. No thoracic vertebral body anomalies are seen. Very mild right convexity lumbar scoliotic curvature is also seen measuring approximately 11 degrees from L1-L4. No anomalies are detected. IMPRESSION: Thoracolumbar scoliosis. Dictated by: Dictated on workstation # [id number]
== END ==
LOC: RAD 14:11
PROVIDERS: ATTEND Nurse Practitioner Family
DX: M41.85 Other forms of scoliosis, thoracolumbar region (principal); M43.9 Deforming dorsopathy, unspecified
CPT/HCPCS: 72081

== ENCOUNTER → 2018-02-09 | Outpatient (CLI) | payer BC ==
--- NOTE | 2018-02-09 17:01 | Diagnostic Imaging Report ---
PROCEDURE: CT sinuses without contrast TECHNIQUE: Multiple contiguous axial images were obtained through the sinuses without the use of intravenous contrast. Coronal and sagittal reformations were then performed. INDICATION: Chronic sinus headache. FINDINGS: There are postsurgical changes of a bilateral maxillary antrectomy. There are no mike bullosa. There is mild tortuosity of the nasal septum. The frontal, ethmoid, sphenoid and maxillary sinuses are clear. There is no significant mucosal thickening. There are no air-fluid levels. The nasopharyngeal soft tissues are symmetric without mass effect. The visualized parotid glands are unremarkable. Globes and intraorbital structures are unremarkable. IMPRESSION: 1. Previous postsurgical changes of bilateral maxillary antrectomy. There is no significant mucosal thickening or air-fluid levels. 2. Tortuosity of the nasal septum. Dictated by: Dictated on workstation # [id number]
== END ==
LOC: RAD 16:17
PROVIDERS: ATTEND Nurse Practitioner Family
DX: J32.9 Chronic sinusitis, unspecified (principal); J34.89 Other specified disorders of nose and nasal sinuses
CPT/HCPCS: 70486

== ENCOUNTER → 2018-04-11 | Outpatient (CLI) | payer BC ==
--- NOTE | 2018-04-11 10:43 | Diagnostic Imaging Report ---
PROCEDURE: MR imaging of the brain without contrast. TECHNIQUE: Multiplanar, multisequence MR imaging of the brain was performed without contrast. INDICATION: Headaches There are no prior studies available for comparison. There is no mass, shift of midline or hemorrhage to suggest an acute intracranial abnormality. There is no abnormal signal arising from the brain on the diffusion series to indicate an area of acute ischemia either. The FLAIR series is unremarkable for any signal abnormality in the periventricular white matter that would suggest demyelinating disease. The ventricles are not abnormally dilated. The sella is not enlarged and expected carotid flow voids are evident bilaterally. The sinuses are generally clear aside from the right maxillary antrum. The right maxillary antrum is hypoplastic and there is mild mucosal thickening of the antrum. The seventh and eighth nerve complexes are unremarkable. IMPRESSION: 1. There is no evidence for an acute intracranial abnormality. 2. There is no sign of a mass lesion nor is there any evidence for a demyelinating disease. 3. The right maxillary antrum is hypoplastic and there is mild right maxillary sinusitis. Dictated by: Dictated on workstation # [id number]
== END ==
LOC: RAD 09:15
PROVIDERS: ATTEND Nurse Practitioner Family
DX: J32.0 Chronic maxillary sinusitis (principal); R51 Headache
CPT/HCPCS: 70551

== ENCOUNTER 2018-09-10 05:35 | Outpatient (CLI) | payer BC ==
[~2018-09-10] VITALS: Ht 165.1 cm; Wt 57.2 kg
[2018-09-11] MEDS ORDERED: IBUP-1773 PO ×2 (07:21)
[2018-09-11] MEDS ORDERED: HYDR-4226 PO ×2 (07:21)
== END 2018-09-10 11:30 ==
LOC: PREOP 05:35
PROVIDERS: ATTEND Obstetrics & Gynecology
DX: Z01.818 Encounter for other preprocedural examination (principal)

== ENCOUNTER 2018-09-11 06:18 | Day surgery (SDC) | payer BC ==
[~2018-09-11] VITALS: Ht 165.1 cm; Wt 57.2 kg
[2018-09-11] MEDS ORDERED: LACTATED RINGERS 1,000 ML IV PRN (06:21)
[2018-09-11 06:50] VITALS: BP 95/59
[2018-09-11] MEDS ORDERED: ONDANSETRON 4 MG/2 ML (SDV) Z0FRAN ONE (07:02)
[2018-09-11] MEDS ORDERED: MIDAZOLAM 2 MG/2 ML (VERSED) VIAL ONE (07:02)
[2018-09-11] MEDS ORDERED: fentaNYL INJECTION 100 MCG/2 ML AMP ONE (07:02)
[2018-09-11] MEDS ORDERED: DEXAMETHASONE 10 MG/ML (DECADRON) 1 ML VIAL ONE (07:02)
[2018-09-11] MEDS ORDERED: LIDOCAINE PF 2% 5 ML (XYLOCAINE) VIAL ONE (07:02)
[2018-09-11] MEDS ORDERED: proPOfol 200 MG/20 ML (DIPRIVAN) VIAL IV ONE (07:02)
[2018-09-11] MEDS ORDERED: SEVOFLURANE (ULTANE) 15 ML INHAL SOLN ONE (07:07)
[2018-09-11 07:15] LABS: BASOPHILS % (AUTO) 1 % (0-10); EOSINOPHILS # (AUTO) 0.1 10^3/uL (0.0-0.3); EOSINOPHILS % (AUTO) 1 % (0-10); HEMATOCRIT 40 % (35-52); LYMPHOCYTES # (AUTO) 1.3 X 10^3 (1.0-4.0); LYMPHOCYTES % (AUTO) 38 % (12-44); MEAN CORPUSCULAR HEMOGLOBIN 29 PG (25-34); MEAN CORPUSCULAR HGB CONC 32 G/DL (32-36); MEAN CORPUSCULAR VOLUME 90 FL (80-99); MEAN PLATELET VOLUME 9.9 FL (7.4-10.4); MONOCYTES # (AUTO) 0.5 X 10^3 (0.0-1.0); MONOCYTES % (AUTO) 15 % (0-12); NEUTROPHILS # (AUTO) 1.6 X 10^3 (1.8-7.8); NEUTROPHILS % (AUTO) 46 % (42-75); PLATELET COUNT 308 10^3/uL (130-400); RED CELL DISTRIBUTION WIDTH 13.3 % (10.0-14.5); WHITE BLOOD COUNT 3.6 10^3/uL (4.3-11.0)
[2018-09-11] MEDS ORDERED: D5 LR IV SOLUTION 1,000 ML IV SCH (07:18)
--- NOTE | 2018-09-11 07:18 | Progress Note-Pre Operative ---
Pre-Operative Progress Note H&P Reviewed The H&P was reviewed, patient examined and no changes noted. Date Seen by Provider: Sep 11, 2018 Time Seen by Provider: 07:15 Date H&P Reviewed: Sep 11, 2018 Time H&P Reviewed: 07:20 Pre-Operative Diagnosis: Missed Ab 9 weeks CARLIN BELLAMY DO Sep 11, 2018 07:18
--- NOTE | 2018-09-11 07:20 | Discharge Inst-Women's Service ---
Discharge Inst-Women's Serv Depart Medication/Instructions New, Converted or Re-Newed RX: RX on Chart Consults/Follow Up Additional Follow Up: Yes Orders/Referrals Dr. Bellamy in 3 weeks Activity Activity: Activity as Tolerated Driving Instructions: You May Drive (do not drive today) NO SMOKING: NO SMOKING Nothing Inside Vagina: No Douching, No [place], No Tampons Diet Discharge Diet: No Restrictions Symptoms to Report to : Bleeding Excessive, Pain Increased, Fever Over 101 Degrees F, Vaginal Bleeding Increase, Questions/Concerns For Any Problems or Questions: Contact Your Physician CARLIN BELLAMY DO Sep 11, 2018 07:20
[2018-09-11] MEDS ORDERED: IBUP-1773 PO ×2 (07:21)
[2018-09-11] MEDS ORDERED: HYDR-4226 PO ×2 (07:21)
[2018-09-11] MEDS ORDERED: HYDROcodone/APAP 5 MG/325 MG (LORTAB) TAB PO PRN (07:30)
[2018-09-11] MEDS ORDERED: KETOROLAC 30 MG/ML VIAL IVP ONE ×2 (07:30→08:00)
[2018-09-11] MEDS ORDERED: ONDANSETRON 4 MG/2 ML (SDV) Z0FRAN IVP PRN ×2 (07:30→08:00)
[2018-09-11] MEDS ORDERED: MEPERIDINE (DEMEROL) INJ 50 MG/ML IVP ONE (08:00)
[2018-09-11] MEDS ORDERED: morphine INJ 10 MG/ML 1ML (SYR OR VIAL) IVP ONE (08:00)
[2018-09-11 08:35] VITALS: BP 106/64
[2018-09-11 09:05] VITALS: BP 96/59
[2018-09-11 09:35] VITALS: BP 102/70
[2018-09-11 09:40] VITALS: BP 102/70
--- NOTE | 2018-09-11 12:58 | Anesthesia-General Post-Op ---
General Patient Condition Mental Status/LOC: Same as Preop Cardiovascular: Satisfactory Nausea/Vomiting: Absent Respiratory: Satisfactory Pain: Controlled Complications: Absent Post Op Complications Complications None Follow Up Care/Instructions Patient Instructions None needed. Anesthesia/Patient Condition Patient Condition Patient is doing well, no complaints, stable vital signs, no apparent adverse anesthesia problems. No complications reported per nursing. RONAL VALDEZ CRNA Sep 11, 2018 12:58
--- NOTE | 2018-09-12 08:37 | OPERATIVE REPORT ---
DATE OF SERVICE: PREOPERATIVE DIAGNOSIS: A 38-year-old G4, P2 with a 9-week missed AB. POSTOPERATIVE DIAGNOSIS: A 38-year-old G4, P2 with a 9-week missed AB. PROCEDURE PERFORMED: Suction D and C. SURGEON: Carlin Bellamy DO. ANESTHESIA: General endotracheal. ESTIMATED BLOOD LOSS: 200 mL. URINE OUTPUT: 50 mL, clear drained at the start of the procedure. FLUIDS: 1200 mL of lactated Ringer's solution. FINDINGS: Moderate amount of products of conception, grossly normal appearing external female genitalia, vagina and cervix. SPECIMEN SENT: Products of conception. INDICATIONS FOR PROCEDURE: This 38-year-old female was a patient that had seen me earlier in the week for OB first visit. At that point, she was found to have a missed AB with a 9-week gestation with no cardiac activity. I discussed with the patient allowing her to pass this on her own versus proceeding with suction D and C. She opted for aggressive measures both for concerns of bleeding at home, but also convenience as well. She had not told her family nor her children about the and would like to be as discrete about this as possible. I discussed with the patient in detail risk of D and C. After all of her questions were answered, consent was obtained in the preoperative area and the patient was taken to the operating room. OPERATIVE REPORT IN DETAIL: Once in the operating room, general anesthesia was found to be adequate. She was placed in dorsal lithotomy position, prepped and draped in a normal sterile fashion. Her bladder was first drained using a straight catheterization and a timeout was performed. After this was done, a weighted speculum was inserted to the patient's vagina. A right angled retractor was used to visualize the cervix, which was grasped at the 12 o'clock position using a long Allis clamp. I then gently sound the uterine cavity and depth was found to be 8 cm. I then gently dilated the cervix using Hegar dilators to a maximum dilatation of 9 mm. I then selected a 9 mm rigid curved suction curette. It was placed within the intrauterine cavity. The amprice suction device was then attached and suction was activated. Once a pressure of 60 mmHg was achieved, I then proceed with methodically rotating the suction curette and clearing the intrauterine cavity of all the products of conception. This was done on several passes. After I feel that the vast majority of the tissue has been removed, I then did a gentle curettage with a medium sized sharp endometrial curette. There was no evidence of retained products at that point. I then make one final pass with the Pako curette one more time after which there was no active bleeding noted and the uterus on bimanual palpation was firm. I then removed all the other instruments from the patient's vagina. The patient tolerated the procedure well and was sent to the recovery area in stable condition. Lap and sponge counts were correct at the end of the procedure and the instrument count was correct as well. The patient tolerated the procedure well and was taken to the recovery area in stable condition. Job ID: [id number] DocumentID: [id number] Dictated Date: 09/12/2018 07:30:02 Inorganic Chemistry Teacher Date: 09/12/2018 08:36:31 Dictated By: CARLIN BELLAMY DO
== END 2018-09-11 09:40 | disposition home or self-care (01) ==
LOC: SDC 06:18
PROVIDERS: ATTEND Obstetrics & Gynecology
DX: O02.1 Missed abortion (principal); K21.9 Gastro-esophageal reflux disease without esophagitis; Z87.891 Personal history of nicotine dependence
CPT/HCPCS: 36415; 85025; 86850; 86900; 86901; 87081; 94664

== ENCOUNTER → 2020-11-15 | Outpatient (CLI) | payer BC, OTHER ==
[~2020-11-15] MED LIST changes: +HYDR-4226 PO; +IBUP-1773 PO; -OMEP20CA12 PO; +OMEP20CA18 PO
--- NOTE | 2020-11-15 14:41 | Diagnostic Imaging Report ---
PROCEDURE: Pelvic comp/transvaginal sonogram. TECHNIQUE: Complete transabdominal and transvaginal pelvic ultrasound was performed. In addition, limited pelvic Doppler was performed. INDICATION: Right lower quadrant pain. FINDINGS: Uterus is anteverted measuring 7.9 x 4.8 x 6.2 cm. Endometrium measures 9 mm in thickness. There is a probable fibroid in the anterior uterus approximately 18 mm in size. No other myometrial masses are identified. Right ovary measures 3.2 x 1.7 x 2.4 cm. Right ovary does contain several follicles. There is blood flow to the right ovary. Left ovary is surgically absent. No free fluid is identified. IMPRESSION: 1. Probable uterine fibroid. 2. Surgically absent left ovary. Dictated by: Dictated on workstation # [id number]
== END ==
LOC: RAD 14:00
PROVIDERS: ATTEND Nurse Practitioner
DX: R10.31 Right lower quadrant pain (principal); Z90.721 Acquired absence of ovaries, unilateral
CPT/HCPCS: 76830; 76856

== ENCOUNTER 2021-07-19 13:20 | Outpatient (RCR) | payer OTHER | END 2021-07-20 | disposition home or self-care (01) | PROVIDERS: ATTEND Family Medicine Sports Medicine | DX: M99.07 Segmental and somatic dysfunction of upper extremity (principal); M46.01 Spinal enthesopathy, occipito-atlanto-axial region; Z86.69 Personal history of other diseases of the nervous system and sense organs ==

== ENCOUNTER 2021-07-27 13:11 | Outpatient (RCR) | payer OTHER | END 2021-08-20 | disposition home or self-care (01) | PROVIDERS: ATTEND Family Medicine Sports Medicine | DX: M99.07 Segmental and somatic dysfunction of upper extremity (principal); M46.01 Spinal enthesopathy, occipito-atlanto-axial region; Z86.69 Personal history of other diseases of the nervous system and sense organs ==